=== PATIENT | male | born 1950 | race Two or more races ===

== ENCOUNTER 2020-02-06 17:07 | Inpatient (IN) | payer MEDICARE, BC ==
[~2020-02-06] VITALS: Ht 175.3 cm; Wt 114.8 kg
[2020-02-06 18:30] VITALS: BP 117/67
[2020-02-06] MEDS ORDERED: DEXAMETHASONE 2 MG TABLET PO SCH (18:45)
[2020-02-06] MEDS ORDERED: TraMADol HCL 50 MG TABLET PO PRN (18:45)
[2020-02-06] MEDS ORDERED: DEXTROSE 50%-WATER 25 GM/50 ML SYRINGE IVP PRN (20:00)
[2020-02-06] MEDS: LevETIRAcetam 500 MG TABLET PO SCH (21:46)
[2020-02-06] MEDS: DEXAMETHASONE 2 MG TABLET PO SCH (21:47)
[2020-02-06] MEDS: ATORVASTATIN CALCIUM 40 MG TABLET PO SCH (21:48)
[2020-02-06] MEDS: FAMOTIDINE 20 MG TABLET PO SCH (21:48)
[2020-02-06] MEDS: GABAPENTIN 100 MG CAPSULE PO SCH (21:48)
[2020-02-06] MEDS: SENNA 187 MG TABLET PO SCH (21:48)
[2020-02-06] MEDS: INSULIN LISPRO 100 UNITS/ML SQ PRN (21:48)
[2020-02-06] MEDS: DOCUSATE SODIUM 100 MG CAPSULE PO SCH (21:56)
[2020-02-06] MEDS: HEPARIN SODIUM,PORCINE 5,000 UNITS/ML VIAL SQ SCH (23:40)
[2020-02-06 23:47] VITALS: BP 120/74
[2020-02-07 05:22] LABS: GLUCOMETER DEV NAME(LOC) 2WR.1C; GLUCOSE,POINT OF CARE 230 MG/DL (70-110)
[2020-02-07 05:52] LABS: GLUCOMETER DEV NAME(LOC) 2WR.2B; GLUCOSE,POINT OF CARE 163 MG/DL (70-110)
[2020-02-07 07:05] VITALS: BP 134/77
[2020-02-07 07:06] LABS: BASOPHILS % (AUTO) 0.1 % (0.0-2.0); EOSINOPHILS % (AUTO) 0.4 % (1.0-6.0); HEMATOCRIT 49.8 % (41-53); HEMOGLOBIN 16.6 g/dL (13.5-17.5); LYMPHOCYTES # (AUTO) 1.9 K/uL (1.0-4.8); LYMPHOCYTES % (AUTO) 12.5 % (22.0-44.0); MEAN CORPUSCULAR HEMOGLOBIN 28.3 pg (26.0-34.0); MEAN CORPUSCULAR HGB CONC 33.4 G/dL (31.0-37.0); MEAN CORPUSCULAR VOLUME 85 fL (80-100); MONOCYTES # (AUTO) 1.1 K/uL (0.1-1.0); MONOCYTES % (AUTO) 7.3 % (2.0-9.0); NEUTROPHILS # (AUTO) 11.9 K/uL (1.8-7.7); NEUTROPHILS % (AUTO) 79.7 % (40.0-70.0); PLATELET COUNT (AUTO) 184 K/uL (150-450); RED BLOOD CELL COUNT(AUTO) 5.87 MIL/uL (4.50-5.90); RED CELL DISTRIBUTION WIDTH 16.1 % (11.5-14.5)
[2020-02-07 07:38] LABS: ALANINE AMINOTRANSFERASE 36 U/L (12-78); ALBUMIN 2.9 g/dL (3.4-5.0); ALKALINE PHOSPHATASE 68 U/L (46-116); ANION GAP 7 mmol/L (8-16); ASPARTATE AMINOTRANSFERASE 11 U/L (15-37); BILIRUBIN,TOTAL 0.7 mg/dL (0.1-1.0); CALCIUM, TOTAL 8.8 mg/dL (8.8-10.5); CARBON DIOXIDE 28 mmol/L (22-29); CHLORIDE 100 mmol/L (98-107); CREATININE 1.05 mg/dL (0.60-1.30); GLOMERULAR FILTR. RATE CALC > 60 mL/min (>60); GLUCOSE,RANDOM 148 mg/dL (70-110); POTASSIUM 4.2 mmol/L (3.5-5.1); SODIUM SERUM 135 mmol/L (136-145); TOTAL PROTEIN, SERUM 6.5 g/dL (6.4-8.2); UREA NITROGEN, BLOOD 21 mg/dL (7-18)
[2020-02-07] MEDS: INSULIN LISPRO 100 UNITS/ML SQ PRN ×3 (09:37→20:29)
[2020-02-07] MEDS: HEPARIN SODIUM,PORCINE 5,000 UNITS/ML VIAL SQ SCH ×3 (09:38→23:27)
[2020-02-07] MEDS: DOCUSATE SODIUM 100 MG CAPSULE PO SCH ×2 (09:39→20:30)
[2020-02-07] MEDS: DEXAMETHASONE 2 MG TABLET PO SCH ×2 (09:39→20:28)
[2020-02-07] MEDS: LevETIRAcetam 500 MG TABLET PO SCH ×2 (09:39→20:28)
[2020-02-07] MEDS: FAMOTIDINE 20 MG TABLET PO SCH ×2 (09:39→20:28)
[2020-02-07] MEDS: TRIAMTERENE/HCTZ 37.5-25 MG CAPSULE PO SCH (09:39)
[2020-02-07] MEDS: LISINOPRIL 10 MG TABLET PO SCH (09:39)
[2020-02-07] MEDS: MetFORMIN HCL 500 MG TABLET PO SCH ×2 (09:39→17:42)
[2020-02-07 15:00] VITALS: BP 100/56
[2020-02-07 15:36] LABS: GLUCOMETER DEV NAME(LOC) 2WR.1C; GLUCOSE,POINT OF CARE 129 MG/DL (70-110)
[2020-02-07 19:32] LABS: GLUCOMETER DEV NAME(LOC) 2WR.2B; GLUCOSE,POINT OF CARE 172 MG/DL (70-110)
[2020-02-07] MEDS: ATORVASTATIN CALCIUM 40 MG TABLET PO SCH (20:28)
[2020-02-07] MEDS: GABAPENTIN 100 MG CAPSULE PO SCH (20:28)
[2020-02-07] MEDS: SENNA 187 MG TABLET PO SCH (20:28)
[2020-02-07 23:46] VITALS: BP 130/68
[2020-02-08 05:19] LABS: GLUCOMETER DEV NAME(LOC) 2WR.1C; GLUCOSE,POINT OF CARE 174 MG/DL (70-110)
[2020-02-08] MEDS: ONDANSETRON HCL 4 MG TABLET PO PRN (05:42)
[2020-02-08 05:55] LABS: GLUCOMETER DEV NAME(LOC) 2WR.1C; GLUCOSE,POINT OF CARE 174 MG/DL (70-110)
[2020-02-08] MEDS: ACETAMINOPHEN 325 MG TABLET PO PRN (08:16)
[2020-02-08] MEDS: INSULIN LISPRO 100 UNITS/ML SQ PRN ×3 (08:16→20:35)
[2020-02-08] MEDS: MetFORMIN HCL 500 MG TABLET PO SCH ×2 (08:17→17:06)
[2020-02-08] MEDS: DOCUSATE SODIUM 100 MG CAPSULE PO SCH ×2 (08:17→20:25)
[2020-02-08] MEDS: DEXAMETHASONE 1 MG TABLET PO SCH ×2 (08:17→20:26)
[2020-02-08] MEDS: TRIAMTERENE/HCTZ 37.5-25 MG CAPSULE PO SCH (08:17)
[2020-02-08] MEDS: FAMOTIDINE 20 MG TABLET PO SCH ×2 (08:17→20:25)
[2020-02-08] MEDS: HEPARIN SODIUM,PORCINE 5,000 UNITS/ML VIAL SQ SCH ×3 (08:17→23:26)
[2020-02-08] MEDS: LISINOPRIL 10 MG TABLET PO SCH (08:17)
[2020-02-08] MEDS: LevETIRAcetam 500 MG TABLET PO SCH ×2 (08:17→20:25)
[2020-02-08 09:43] VITALS: BP 131/84
[2020-02-08 13:00] LABS: GLUCOMETER DEV NAME(LOC) 2WR.2B; GLUCOSE,POINT OF CARE 109 MG/DL (70-110)
[2020-02-08] MEDS ORDERED: METF-960 PO (14:25)
[2020-02-08 16:04] VITALS: BP 118/68
[2020-02-08 17:57] LABS: GLUCOMETER DEV NAME(LOC) 2WR.2B; GLUCOSE,POINT OF CARE 150 MG/DL (70-110)
[2020-02-08] MEDS: GABAPENTIN 100 MG CAPSULE PO SCH (20:24)
[2020-02-08] MEDS: ATORVASTATIN CALCIUM 40 MG TABLET PO SCH (20:24)
[2020-02-08] MEDS: SENNA 187 MG TABLET PO SCH (20:26)
[2020-02-08] MEDS: MELATONIN 3 MG TABLET PO PRN (21:40)
[2020-02-08 22:02] LABS: GLUCOMETER DEV NAME(LOC) 2WR.2B; GLUCOSE,POINT OF CARE 196 MG/DL (70-110)
[2020-02-08 23:37] VITALS: BP 110/56
[2020-02-09 06:24] LABS: GLUCOMETER DEV NAME(LOC) 2WR.1C; GLUCOSE,POINT OF CARE 150 MG/DL (70-110)
[2020-02-09 07:40] VITALS: BP 125/74
[2020-02-09] MEDS: TRIAMTERENE/HCTZ 37.5-25 MG CAPSULE PO SCH (07:44)
[2020-02-09] MEDS: DEXAMETHASONE 1 MG TABLET PO SCH ×2 (07:44→20:22)
[2020-02-09] MEDS: FAMOTIDINE 20 MG TABLET PO SCH ×2 (07:44→20:22)
[2020-02-09] MEDS: LISINOPRIL 10 MG TABLET PO SCH (07:44)
[2020-02-09] MEDS: ONDANSETRON HCL 4 MG TABLET PO PRN (07:44)
[2020-02-09] MEDS: MetFORMIN HCL 500 MG TABLET PO SCH ×2 (07:44→17:50)
[2020-02-09] MEDS: LevETIRAcetam 500 MG TABLET PO SCH ×2 (07:45→20:22)
[2020-02-09] MEDS: HEPARIN SODIUM,PORCINE 5,000 UNITS/ML VIAL SQ SCH ×3 (07:45→23:44)
[2020-02-09] MEDS: DOCUSATE SODIUM 100 MG CAPSULE PO SCH ×2 (07:45→20:22)
[2020-02-09] MEDS: INSULIN LISPRO 100 UNITS/ML SQ PRN ×2 (07:49→21:19)
[2020-02-09] MEDS: ACETAMINOPHEN 325 MG TABLET PO PRN (12:39)
[2020-02-09 16:00] VITALS: BP 111/62
[2020-02-09 17:45] LABS: GLUCOMETER DEV NAME(LOC) 2WR.1C; GLUCOSE,POINT OF CARE 120 MG/DL (70-110)
[2020-02-09 18:34] LABS: GLUCOMETER DEV NAME(LOC) 2WR.2B; GLUCOSE,POINT OF CARE 135 MG/DL (70-110)
[2020-02-09] MEDS: GABAPENTIN 100 MG CAPSULE PO SCH (20:22)
[2020-02-09] MEDS: SENNA 187 MG TABLET PO SCH (20:22)
[2020-02-09] MEDS: MELATONIN 3 MG TABLET PO PRN (20:22)
[2020-02-09] MEDS: ATORVASTATIN CALCIUM 40 MG TABLET PO SCH (20:22)
[2020-02-09 22:14] LABS: GLUCOMETER DEV NAME(LOC) 2WR.2B; GLUCOSE,POINT OF CARE 176 MG/DL (70-110)
[2020-02-09 23:51] VITALS: BP 119/65
[2020-02-10 06:00] LABS: GLUCOMETER DEV NAME(LOC) 2WR.1C; GLUCOSE,POINT OF CARE 138 MG/DL (70-110)
[2020-02-10 08:12] LABS: ANION GAP 4 mmol/L (8-16); CALCIUM, TOTAL 9.1 mg/dL (8.8-10.5); CARBON DIOXIDE 26 mmol/L (22-29); CHLORIDE 99 mmol/L (98-107); CREATININE 0.91 mg/dL (0.60-1.30); GLOMERULAR FILTR. RATE CALC > 60 mL/min (>60); GLUCOSE,RANDOM 118 mg/dL (70-110); POTASSIUM 4.2 mmol/L (3.5-5.1); SODIUM SERUM 129 mmol/L (136-145); UREA NITROGEN, BLOOD 24 mg/dL (7-18)
[2020-02-10 08:45] VITALS: BP 125/66
[2020-02-10] MEDS: MetFORMIN HCL 500 MG TABLET PO SCH ×2 (08:49→17:43)
[2020-02-10] MEDS: DOCUSATE SODIUM 100 MG CAPSULE PO SCH ×2 (08:50→20:17)
[2020-02-10] MEDS: TRIAMTERENE/HCTZ 37.5-25 MG CAPSULE PO SCH (08:50)
[2020-02-10] MEDS: LevETIRAcetam 500 MG TABLET PO SCH ×2 (08:50→20:17)
[2020-02-10] MEDS: FAMOTIDINE 20 MG TABLET PO SCH ×2 (08:50→20:17)
[2020-02-10] MEDS: LISINOPRIL 10 MG TABLET PO SCH (08:51)
[2020-02-10] MEDS: DEXAMETHASONE 1 MG TABLET PO SCH (08:51)
[2020-02-10] MEDS: HEPARIN SODIUM,PORCINE 5,000 UNITS/ML VIAL SQ SCH ×3 (08:52→23:20)
[2020-02-10 13:26] LABS: GLUCOMETER DEV NAME(LOC) 2WR.1C; GLUCOSE,POINT OF CARE 122 MG/DL (70-110)
[2020-02-10] MEDS: ACETAMINOPHEN 325 MG TABLET PO PRN (13:31)
[2020-02-10 15:05] VITALS: BP 104/54
[2020-02-10 18:33] LABS: GLUCOMETER DEV NAME(LOC) 2WR.1C; GLUCOSE,POINT OF CARE 120 MG/DL (70-110)
[2020-02-10] MEDS: GABAPENTIN 100 MG CAPSULE PO SCH (20:17)
[2020-02-10] MEDS: ATORVASTATIN CALCIUM 40 MG TABLET PO SCH (20:17)
[2020-02-10] MEDS: SENNA 187 MG TABLET PO SCH (20:17)
[2020-02-10 22:19] LABS: GLUCOMETER DEV NAME(LOC) 2WR.2B; GLUCOSE,POINT OF CARE 123 MG/DL (70-110)
[2020-02-10 23:21] VITALS: BP 120/73
[2020-02-11 06:11] LABS: GLUCOMETER DEV NAME(LOC) 2WR.1C; GLUCOSE,POINT OF CARE 109 MG/DL (70-110)
[2020-02-11 07:19] LABS: ANION GAP 5 mmol/L (8-16); CALCIUM, TOTAL 8.4 mg/dL (8.8-10.5); CARBON DIOXIDE 27 mmol/L (22-29); CHLORIDE 98 mmol/L (98-107); CREATININE 1.12 mg/dL (0.60-1.30); GLOMERULAR FILTR. RATE CALC > 60 mL/min (>60); GLUCOSE,RANDOM 113 mg/dL (70-110); POTASSIUM 3.9 mmol/L (3.5-5.1); SODIUM SERUM 130 mmol/L (136-145); UREA NITROGEN, BLOOD 24 mg/dL (7-18)
[2020-02-11 08:00] VITALS: BP 130/53
[2020-02-11] MEDS: MetFORMIN HCL 500 MG TABLET PO SCH ×2 (08:13→19:09)
[2020-02-11] MEDS: LevETIRAcetam 500 MG TABLET PO SCH ×2 (08:13→20:43)
[2020-02-11] MEDS: TRIAMTERENE/HCTZ 37.5-25 MG CAPSULE PO SCH (08:14)
[2020-02-11] MEDS: FAMOTIDINE 20 MG TABLET PO SCH ×2 (08:14→20:43)
[2020-02-11] MEDS: LISINOPRIL 10 MG TABLET PO SCH (08:14)
[2020-02-11] MEDS: HEPARIN SODIUM,PORCINE 5,000 UNITS/ML VIAL SQ SCH ×2 (08:15→15:20)
[2020-02-11] MEDS: DOCUSATE SODIUM 100 MG CAPSULE PO SCH ×3 (08:15→21:00)
[2020-02-11] MEDS ORDERED: LISI10TA7 PO (12:25)
[2020-02-11] MEDS ORDERED: TRIA1CAP6 PO (12:25)
[2020-02-11] MEDS ORDERED: ATOR-2 PO (12:25)
[2020-02-11] MEDS: SODIUM CHLORIDE 1 GM TABLET PO SCH (12:56)
[2020-02-11 13:06] LABS: GLUCOMETER DEV NAME(LOC) 2WR.2B; GLUCOSE,POINT OF CARE 110 MG/DL (70-110)
[2020-02-11 15:20] VITALS: BP 110/68
[2020-02-11 19:21] LABS: GLUCOMETER DEV NAME(LOC) 2WR.2B; GLUCOSE,POINT OF CARE 129 MG/DL (70-110)
[2020-02-11] MEDS: INSULIN LISPRO 100 UNITS/ML SQ PRN (20:42)
[2020-02-11] MEDS: MELATONIN 3 MG TABLET PO PRN (20:43)
[2020-02-11] MEDS: SENNA 187 MG TABLET PO SCH (20:43)
[2020-02-11] MEDS: GABAPENTIN 100 MG CAPSULE PO SCH (20:43)
[2020-02-11] MEDS: ATORVASTATIN CALCIUM 40 MG TABLET PO SCH (20:45)
[2020-02-11 22:41] LABS: GLUCOMETER DEV NAME(LOC) 2WR.1C; GLUCOSE,POINT OF CARE 145 MG/DL (70-110)
[2020-02-12 00:20] VITALS: BP 114/65
[2020-02-12] MEDS: HEPARIN SODIUM,PORCINE 5,000 UNITS/ML VIAL SQ SCH ×4 (00:48→23:13)
[2020-02-12 05:56] LABS: GLUCOMETER DEV NAME(LOC) 2WR.2B; GLUCOSE,POINT OF CARE 113 MG/DL (70-110)
[2020-02-12 07:10] LABS: CALCIUM, TOTAL 8.9 mg/dL (8.8-10.5); CREATININE 1.34 mg/dL (0.60-1.30)
[2020-02-12 07:50] VITALS: BP 105/50
[2020-02-12] MEDS: FAMOTIDINE 20 MG TABLET PO SCH ×2 (07:50→20:55)
[2020-02-12] MEDS: DOCUSATE SODIUM 100 MG CAPSULE PO SCH ×2 (07:50→20:55)
[2020-02-12] MEDS: LevETIRAcetam 500 MG TABLET PO SCH ×2 (07:50→20:55)
[2020-02-12] MEDS: MetFORMIN HCL 500 MG TABLET PO SCH ×2 (07:50→18:17)
[2020-02-12] MEDS: SODIUM CHLORIDE 1 GM TABLET PO SCH (07:50)
[2020-02-12] MEDS: TRIAMTERENE/HCTZ 37.5-25 MG CAPSULE PO SCH (07:50)
[2020-02-12] MEDS: LISINOPRIL 10 MG TABLET PO SCH (07:50)
[2020-02-12] MEDS: ACETAMINOPHEN 325 MG TABLET PO PRN (08:42)
[2020-02-12 12:20] LABS: GLUCOMETER DEV NAME(LOC) 2WR.2B; GLUCOSE,POINT OF CARE 152 MG/DL (70-110)
[2020-02-12] MEDS: INSULIN LISPRO 100 UNITS/ML SQ PRN (12:40)
[2020-02-12 16:00] VITALS: BP 116/59
[2020-02-12 18:33] LABS: GLUCOMETER DEV NAME(LOC) 2WR.2B; GLUCOSE,POINT OF CARE 101 MG/DL (70-110)
[2020-02-12] MEDS: SENNA 187 MG TABLET PO SCH (20:55)
[2020-02-12] MEDS: ATORVASTATIN CALCIUM 40 MG TABLET PO SCH (20:55)
[2020-02-12] MEDS: MELATONIN 3 MG TABLET PO PRN (20:55)
[2020-02-12] MEDS: GABAPENTIN 100 MG CAPSULE PO SCH (21:02)
[2020-02-12 23:20] LABS: GLUCOMETER DEV NAME(LOC) 2WR.2B; GLUCOSE,POINT OF CARE 111 MG/DL (70-110)
[2020-02-12 23:54] VITALS: BP 112/63
[2020-02-13 06:18] LABS: GLUCOMETER DEV NAME(LOC) 2WR.2B; GLUCOSE,POINT OF CARE 132 MG/DL (70-110)
[2020-02-13 08:20] VITALS: BP 112/61
[2020-02-13] MEDS: SODIUM CHLORIDE 1 GM TABLET PO SCH (08:21)
[2020-02-13] MEDS: TRIAMTERENE/HCTZ 37.5-25 MG CAPSULE PO SCH (08:21)
[2020-02-13] MEDS: MetFORMIN HCL 500 MG TABLET PO SCH ×2 (08:21→17:48)
[2020-02-13] MEDS: FAMOTIDINE 20 MG TABLET PO SCH ×2 (08:21→21:03)
[2020-02-13] MEDS: LevETIRAcetam 500 MG TABLET PO SCH ×2 (08:22→21:03)
[2020-02-13] MEDS: DOCUSATE SODIUM 100 MG CAPSULE PO SCH ×2 (08:22→21:03)
[2020-02-13] MEDS: HEPARIN SODIUM,PORCINE 5,000 UNITS/ML VIAL SQ SCH ×3 (08:22→23:30)
[2020-02-13] MEDS: LISINOPRIL 10 MG TABLET PO SCH (08:22)
[2020-02-13 08:27] LABS: BASOPHILS % (AUTO) 0.7 % (0.0-2.0); EOSINOPHILS % (AUTO) 0.8 % (1.0-6.0); HEMATOCRIT 48.1 % (41-53); HEMOGLOBIN 16.5 g/dL (13.5-17.5); LYMPHOCYTES # (AUTO) 1.3 K/uL (1.0-4.8); MEAN CORPUSCULAR HEMOGLOBIN 29.1 pg (26.0-34.0); MEAN CORPUSCULAR HGB CONC 34.4 G/dL (31.0-37.0); MEAN CORPUSCULAR VOLUME 85 fL (80-100); MONOCYTES # (AUTO) 0.9 K/uL (0.1-1.0); MONOCYTES % (AUTO) 8.9 % (2.0-9.0); NEUTROPHILS # (AUTO) 7.5 K/uL (1.8-7.7); NEUTROPHILS % (AUTO) 76.6 % (40.0-70.0); PLATELET COUNT (AUTO) 136 K/uL (150-450); RED BLOOD CELL COUNT(AUTO) 5.67 MIL/uL (4.50-5.90); RED CELL DISTRIBUTION WIDTH 15.8 % (11.5-14.5)
[2020-02-13 08:42] LABS: ANION GAP 8 mmol/L (8-16); CALCIUM, TOTAL 9.1 mg/dL (8.8-10.5); CARBON DIOXIDE 24 mmol/L (22-29); CHLORIDE 97 mmol/L (98-107); CREATININE 1.08 mg/dL (0.60-1.30); GLOMERULAR FILTR. RATE CALC > 60 mL/min (>60); GLUCOSE,RANDOM 127 mg/dL (70-110); POTASSIUM 4.8 mmol/L (3.5-5.1); SODIUM SERUM 129 mmol/L (136-145); UREA NITROGEN, BLOOD 25 mg/dL (7-18)
[2020-02-13 15:00] VITALS: BP 99/60
[2020-02-13 15:44] LABS: GLUCOMETER DEV NAME(LOC) 2WR.1C; GLUCOSE,POINT OF CARE 136 MG/DL (70-110)
[2020-02-13 18:51] LABS: GLUCOMETER DEV NAME(LOC) 2WR.2B; GLUCOSE,POINT OF CARE 132 MG/DL (70-110)
[2020-02-13] MEDS: ATORVASTATIN CALCIUM 40 MG TABLET PO SCH (21:03)
[2020-02-13] MEDS: SENNA 187 MG TABLET PO SCH (21:03)
[2020-02-13] MEDS: GABAPENTIN 100 MG CAPSULE PO SCH (21:03)
[2020-02-13] MEDS: MELATONIN 3 MG TABLET PO PRN (21:03)
[2020-02-13 22:24] LABS: GLUCOMETER DEV NAME(LOC) 2WR.1C; GLUCOSE,POINT OF CARE 119 MG/DL (70-110)
[2020-02-13 23:26] VITALS: BP 105/59
[2020-02-14 06:04] LABS: GLUCOMETER DEV NAME(LOC) 2WR.2B; GLUCOSE,POINT OF CARE 112 MG/DL (70-110)
[2020-02-14 08:00] VITALS: BP 109/58
[2020-02-14] MEDS: DOCUSATE SODIUM 100 MG CAPSULE PO SCH ×3 (08:08→20:39)
[2020-02-14] MEDS: LISINOPRIL 10 MG TABLET PO SCH (08:08)
[2020-02-14] MEDS: TRIAMTERENE/HCTZ 37.5-25 MG CAPSULE PO SCH (08:08)
[2020-02-14] MEDS: MetFORMIN HCL 500 MG TABLET PO SCH ×2 (08:08→17:53)
[2020-02-14] MEDS: LevETIRAcetam 500 MG TABLET PO SCH ×2 (08:08→20:39)
[2020-02-14] MEDS: SODIUM CHLORIDE 1 GM TABLET PO SCH ×3 (08:08→20:38)
[2020-02-14] MEDS: FAMOTIDINE 20 MG TABLET PO SCH ×2 (08:08→20:39)
[2020-02-14] MEDS: HEPARIN SODIUM,PORCINE 5,000 UNITS/ML VIAL SQ SCH ×3 (08:09→23:18)
[2020-02-14] MEDS ORDERED: SILVER NITRATE APPLICATOR 1 EA STICK TP ONE (10:00)
[2020-02-14] MEDS: ACETAMINOPHEN 325 MG TABLET PO PRN (11:41)
[2020-02-14 11:53] LABS: GLUCOMETER DEV NAME(LOC) 2WR.2B; GLUCOSE,POINT OF CARE 88 MG/DL (70-110)
[2020-02-14 15:00] VITALS: BP 111/54
[2020-02-14 17:54] LABS: GLUCOMETER DEV NAME(LOC) 2WR.2B; GLUCOSE,POINT OF CARE 124 MG/DL (70-110)
[2020-02-14] MEDS: MELATONIN 3 MG TABLET PO PRN (20:38)
[2020-02-14] MEDS: GABAPENTIN 100 MG CAPSULE PO SCH (20:38)
[2020-02-14] MEDS: ATORVASTATIN CALCIUM 40 MG TABLET PO SCH (20:39)
[2020-02-14] MEDS: SENNA 187 MG TABLET PO SCH (20:39)
[2020-02-14 23:28] VITALS: BP 113/62
[2020-02-15 06:23] LABS: GLUCOMETER DEV NAME(LOC) 2WR.2B; GLUCOSE,POINT OF CARE 108 MG/DL (70-110)
[2020-02-15] MEDS: DOCUSATE SODIUM 100 MG CAPSULE PO SCH ×2 (08:28→20:14)
[2020-02-15] MEDS: TRIAMTERENE/HCTZ 37.5-25 MG CAPSULE PO SCH (08:28)
[2020-02-15] MEDS: FAMOTIDINE 20 MG TABLET PO SCH ×2 (08:28→20:14)
[2020-02-15] MEDS: HEPARIN SODIUM,PORCINE 5,000 UNITS/ML VIAL SQ SCH ×3 (08:28→23:59)
[2020-02-15] MEDS: ACETAMINOPHEN 325 MG TABLET PO PRN (08:28)
[2020-02-15] MEDS: LevETIRAcetam 500 MG TABLET PO SCH ×2 (08:28→20:14)
[2020-02-15] MEDS: MetFORMIN HCL 500 MG TABLET PO SCH ×2 (08:28→18:56)
[2020-02-15] MEDS: LISINOPRIL 10 MG TABLET PO SCH (08:28)
[2020-02-15] MEDS: SODIUM CHLORIDE 1 GM TABLET PO SCH ×3 (08:28→20:14)
[2020-02-15 09:14] VITALS: BP 124/69
[2020-02-15 16:06] VITALS: BP 105/66
[2020-02-15 18:00] LABS: GLUCOMETER DEV NAME(LOC) 2WR.2B; GLUCOSE,POINT OF CARE 126 MG/DL (70-110)
[2020-02-15] MEDS: GABAPENTIN 100 MG CAPSULE PO SCH (20:14)
[2020-02-15] MEDS: ATORVASTATIN CALCIUM 40 MG TABLET PO SCH (20:14)
[2020-02-15] MEDS: SENNA 187 MG TABLET PO SCH (20:14)
[2020-02-15] MEDS: MELATONIN 3 MG TABLET PO PRN (20:15)
[2020-02-15 23:30] VITALS: BP 111/60
[2020-02-16 06:10] LABS: GLUCOMETER DEV NAME(LOC) 2WR.2B; GLUCOSE,POINT OF CARE 98 MG/DL (70-110)
[2020-02-16 07:19] VITALS: BP 114/61
[2020-02-16] MEDS: LISINOPRIL 10 MG TABLET PO SCH (07:57)
[2020-02-16] MEDS: SODIUM CHLORIDE 1 GM TABLET PO SCH ×3 (07:57→20:42)
[2020-02-16] MEDS: MetFORMIN HCL 500 MG TABLET PO SCH ×2 (07:57→17:58)
[2020-02-16] MEDS: LevETIRAcetam 500 MG TABLET PO SCH ×2 (07:57→20:42)
[2020-02-16] MEDS: FAMOTIDINE 20 MG TABLET PO SCH ×2 (07:57→20:42)
[2020-02-16] MEDS: TRIAMTERENE/HCTZ 37.5-25 MG CAPSULE PO SCH (07:57)
[2020-02-16] MEDS: DOCUSATE SODIUM 100 MG CAPSULE PO SCH ×2 (07:57→20:42)
[2020-02-16] MEDS: HEPARIN SODIUM,PORCINE 5,000 UNITS/ML VIAL SQ SCH ×3 (07:58→23:27)
[2020-02-16 11:16] LABS: ANION GAP 12 mmol/L (8-16); CARBON DIOXIDE 20 mmol/L (22-29); CHLORIDE 98 mmol/L (98-107); GLOMERULAR FILTR. RATE CALC > 60 mL/min (>60); GLUCOSE,RANDOM 124 mg/dL (70-110); POTASSIUM 4.4 mmol/L (3.5-5.1); SODIUM SERUM 130 mmol/L (136-145); UREA NITROGEN, BLOOD 20 mg/dL (7-18)
[2020-02-16 16:50] VITALS: BP 114/60
[2020-02-16 20:28] LABS: GLUCOMETER DEV NAME(LOC) 2WR.1C; GLUCOSE,POINT OF CARE 93 MG/DL (70-110)
[2020-02-16] MEDS: SENNA 187 MG TABLET PO SCH (20:42)
[2020-02-16] MEDS: ATORVASTATIN CALCIUM 40 MG TABLET PO SCH (20:42)
[2020-02-16] MEDS: GABAPENTIN 100 MG CAPSULE PO SCH (20:42)
[2020-02-16] MEDS: MELATONIN 3 MG TABLET PO PRN (20:43)
[2020-02-16 23:46] VITALS: BP 118/56
[2020-02-17 05:49] LABS: GLUCOMETER DEV NAME(LOC) 2WR.1C; GLUCOSE,POINT OF CARE 94 MG/DL (70-110)
[2020-02-17] MEDS: INSULIN LISPRO 100 UNITS/ML SQ PRN (07:46)
[2020-02-17 07:50] VITALS: BP 116/69
[2020-02-17] MEDS: SODIUM CHLORIDE 1 GM TABLET PO SCH ×3 (08:03→21:35)
[2020-02-17] MEDS: FAMOTIDINE 20 MG TABLET PO SCH ×2 (08:03→21:36)
[2020-02-17] MEDS: HEPARIN SODIUM,PORCINE 5,000 UNITS/ML VIAL SQ SCH ×3 (08:03→23:16)
[2020-02-17] MEDS: DOCUSATE SODIUM 100 MG CAPSULE PO SCH ×2 (08:03→21:35)
[2020-02-17] MEDS: MetFORMIN HCL 500 MG TABLET PO SCH ×2 (08:03→17:43)
[2020-02-17] MEDS: LevETIRAcetam 500 MG TABLET PO SCH ×2 (08:03→21:35)
[2020-02-17] MEDS: TRIAMTERENE/HCTZ 37.5-25 MG CAPSULE PO SCH (08:03)
[2020-02-17] MEDS: LISINOPRIL 10 MG TABLET PO SCH (08:04)
[2020-02-17 14:30] VITALS: BP 111/51
[2020-02-17 17:56] LABS: GLUCOMETER DEV NAME(LOC) 2WR.2B; GLUCOSE,POINT OF CARE 100 MG/DL (70-110)
[2020-02-17] MEDS: GABAPENTIN 100 MG CAPSULE PO SCH (21:34)
[2020-02-17] MEDS: SENNA 187 MG TABLET PO SCH (21:35)
[2020-02-17] MEDS: ATORVASTATIN CALCIUM 40 MG TABLET PO SCH (21:35)
[2020-02-17] MEDS: MELATONIN 3 MG TABLET PO PRN (23:13)
[2020-02-18 00:09] VITALS: BP 109/61
[2020-02-18] MEDS ORDERED: FAMO20 PO (01:42)
[2020-02-18] MEDS ORDERED: GABA-1216 PO (01:42)
[2020-02-18] MEDS ORDERED: NACL1 PO (01:42)
[2020-02-18] MEDS ORDERED: LEVE500T53 PO (01:42)
[2020-02-18] MEDS ORDERED: DOCU-275 PO (01:42)
[2020-02-18] MEDS ORDERED: ATOR40TA28 PO (01:43)
[2020-02-18] MEDS ORDERED: ONDA-104 PO (01:57)
[2020-02-18 06:13] LABS: GLUCOMETER DEV NAME(LOC) 2WR.2B; GLUCOSE,POINT OF CARE 110 MG/DL (70-110)
[2020-02-18 07:15] VITALS: BP 117/62
[2020-02-18 07:36] LABS: CALCIUM, TOTAL 8.5 mg/dL (8.8-10.5); CREATININE 1.23 mg/dL (0.60-1.30); POTASSIUM 4.3 mmol/L (3.5-5.1)
[2020-02-18] MEDS: LevETIRAcetam 500 MG TABLET PO SCH (08:01)
[2020-02-18] MEDS: MetFORMIN HCL 500 MG TABLET PO SCH (08:01)
[2020-02-18] MEDS: DOCUSATE SODIUM 100 MG CAPSULE PO SCH (08:01)
[2020-02-18] MEDS: HEPARIN SODIUM,PORCINE 5,000 UNITS/ML VIAL SQ SCH (08:02)
[2020-02-18] MEDS: FAMOTIDINE 20 MG TABLET PO SCH (08:02)
[2020-02-18] MEDS: SODIUM CHLORIDE 1 GM TABLET PO SCH (08:02)
[2020-02-18] MEDS: LISINOPRIL 10 MG TABLET PO SCH (08:02)
[2020-02-18] MEDS: TRIAMTERENE/HCTZ 37.5-25 MG CAPSULE PO SCH (08:02)
[2020-02-18] MEDS: ACETAMINOPHEN 325 MG TABLET PO PRN (09:35)
== END 2020-02-18 13:00 | disposition home health service (06) | DRG 55 ==
LOC: 2WR 18:10
PROVIDERS: ADMIT Physical Medicine & Rehabilitation; ATTEND Physical Medicine & Rehabilitation
DX: C71.9 Malignant neoplasm of brain, unspecified (principal); G81.94 Hemiplegia, unspecified affecting left nondominant side; E46 Unspecified protein-calorie malnutrition; E87.1 Hypo-osmolality and hyponatremia; E11.9 Type 2 diabetes mellitus without complications; I10 Essential (primary) hypertension; E78.5 Hyperlipidemia, unspecified; E66.9 Obesity, unspecified; M19.90 Unspecified osteoarthritis, unspecified site; D72.829 Elevated white blood cell count, unspecified
CPT/HCPCS: 87081; 92507; 92508; 92523; 97110; 97112; 97116; 97150; 97163; 97166; 97530; 97535; 99366; J1644; J8540; Q0162